=== PATIENT | female | born 1995 | race Caucasian/White ===

== ENCOUNTER 2023-05-01 22:41 | Emergency (ER) | payer SELFPAY ==
[~2023-05-01] VITALS: Ht 170.2 cm; Wt 75.0 kg
[~2023-05-01 22:41] MED LIST: BIRTH CONTROL PILLS; CEFTIN 250250 MG/TAB PO; DEPO-PROVER150 MG/M1 IM; MACROBID 1100 MG/CAP PO; PYRIDIUM200 M1 PO
[2023-05-01 22:53] VITALS: BP 153/83; TEMP 97.4
[2023-05-02] MEDS ORDERED: Iohexol 300 - 100 ML VIAL IV ONE (00:35)
[2023-05-02] MEDS ORDERED: NS 100 ML IV SCH (00:36)
[2023-05-02 01:54] VITALS: PULSE 77
== END 2023-05-02 01:55 | disposition home or self-care (01) ==
LOC: COL.ER 22:41
DX: S10.93XA Contusion of unspecified part of neck, initial encounter (principal); S00.93XA Contusion of unspecified part of head, initial encounter; F17.210 Nicotine dependence, cigarettes, uncomplicated; Y04.0XXA Assault by unarmed brawl or fight, initial encounter; Y07.010 Husband, current, perpetrator of maltreatment and neglect
CPT/HCPCS: Q9967